=== PATIENT | male | born 1980 | race Caucasian/White ===

== ENCOUNTER 2018-10-25 23:36 | Emergency (ER) | payer OTHER ==
[~2018-10-25] VITALS: Ht 162.6 cm; Wt 74.8 kg
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
[2018-10-26] MEDS ORDERED: IBUPROFEN 400 MG TABLET. PO ONE (00:30)
--- NOTE | 2018-10-26 00:39 | RAD ---
PQRS Compliance statement: One or more of the following individualized dose reduction techniques were utilized for this examination: 1. Automated exposure control. 2. Adjustment of the mA and/or kV according to patient size. 3. Use of iterative reconstruction technique. Indication:Injury TECHNIQUE: CT head without IV contrast COMPARISON: None FINDINGS: No pathologic extra-axial or intra-axial fluid collection. The ventricles and basal cisterns are within normal limits. No acute intracranial bleed. No large scalp hematoma. Orbits are within normal limits. No acute calvarial fracture. Visualized paranasal sinuses and mastoid air cells are clear. IMPRESSION: No acute intracranial bleed or calvarial fracture. Electronically signed by: Paul Garcia DO (10/26/2018 12:36 AM) [id number]
--- NOTE | 2018-10-26 01:12 | RAD ---
AP and lateral right forearm radiographs 10/26/2018 CLINICAL HISTORY: Injury to the right forearm. AP and lateral digital radiographs of the right forearm were obtained. No fracture or dislocation right forearm is seen. No radiopaque foreign body is noted. IMPRESSION: No fracture or dislocation of the right forearm is seen. Electronically signed by: Fab Lopez MD (10/26/2018 1:09 AM) [facility]
[2018-10-26 02:34] VITALS: BP 132/84
== END 2018-10-26 01:00 | disposition home or self-care (01) ==
LOC: ER 23:36 → EEVIPCON 23:36 → ER 10-26 01:00
DX: S01.01XA Laceration without foreign body of scalp, initial encounter (principal); S50.11XA Contusion of right forearm, initial encounter; R51 Headache; Y04.2XXA Assault by strike against or bumped into by another person, initial encounter; Y93.89 Activity, other specified; Y92.89 Other specified places as the place of occurrence of the external cause; Y99.8 Other external cause status
CPT/HCPCS: 12002; 70450; 73090; 99284-25